=== PATIENT | female | born 1975 | race Caucasian/White ===

== ENCOUNTER 2016-07-02 16:35 | Emergency (ER) | payer SELFPAY ==
[2016-07-02 16:42] VITALS: RESP 16
--- NOTE | 2016-07-02 16:59 | EDPHY ---
General - History Smoking Status: Current every day smoker Narrative: CHIEF COMPLAINT: Fall, shoulder pain, back pain HISTORY OF PRESENT ILLNESS: gated to go to the restroom early this morning when she tripped and fell. She landed with her right arm outstretched. She did not strike her head or neck. She denies any loss of consciousness. She has pain in the right shoulder over the deltoid. It is worse with palpation or movement. Does not radiate. No weakness or numbness distally. Also has low back pain that is bilateral but not midline. She has no numbness or tingling of the saddle or distal extremities. She has no weakness of the lower extremities. No incontinence. No chest or back pain. No abdominal pain or injuries. The pain is mild to moderate. Worse with palpation or movement. Improved minimally rest. No previous orthopedic injuries. PRIOR ORTHO INJURIES: None ESTABLISHED ORTHOPEDIST: none REVIEW OF SYSTEMS: Ten systems reviewed and are negative unless otherwise noted in the HPI EXAMINATION General Appearance: Alert, no distress Head: normocephalic, atraumatic Eyes: Pupils equal and round, no conjunctival pallor or injection ENT, Mouth: Mucous membranes moist Neck: Normal inspection. Painless range of motion all planes. Respiratory: No dyspnea or retractions. No distress Cardiovascular: Pulses normal throughout. Symmetric DP pulses 2+. Symmetric radial pulses are 2+ Brisk cap refill Gastrointestinal: No distention. No tenderness. Back: Bilateral soft tissue tenderness of the lumbar region. There is no midline tenderness at any region. No crepitus, step-off deformity. Range of motion intact. Neurological: A&O, sensory symmetric, strength symmetric Skin: Warm and dry, no rash Extremities: Tenderness to palpation in the right upper extremity about the shoulder joint. There is minimal bony tenderness. There is positive Yergason' s speed. Negative anti can. No apprehension. Range of motion of the right elbow and wrist fully intact. The interossei are intact. Strength is symmetric to the left upper extremity. Psychiatric: Mood and affect normal DIFFERENTIAL DIAGNOSES: Including but not limited to Sprain, strain, fracture, dislocation, contusion , rotator cuff injury, slap injury MDM: 4:55 p.m. mechanical fall this morning resulting on the fall on outstretched arm but not onto the hand. She fell with abduction of the shoulder. Clinical suspicion is high for rotator cuff versus slap injury. Minimal bony tenderness. I will obtain an x-ray to definitively rule out fracture. Plan for discharge home with sling and pain medications. She is neurovascular intact distal to this injury. She has mild low back pain that is non midline and non bony. 5:25 p.m. x-ray is read as no acute fracture. There is evidence of the possibility of rotator cuff injury. This is consistent with her examination and history. She remains neurovascularly intact in the upper extremity. There is no evidence of acute cord compression or cauda equina regarding the low back pain. She will be discharged home with a shoulder sling, pain medication, muscle relaxant. She is to follow up with her orthopedist as we listed next week for definitive care. Patient is comfortable this plan. ED Precautions: Worsening pain. Erythema, edema, cyanosis, pallor, paresthesia or anesthesia. SUPERVISION: This patient was independently evaluated without the aide of supervising physician. (Mauricio Mart) This patient was evaluated and managed by the physician speech language pathologist assistant. I have reviewed the documentation and agreed with the plan of care. I am the secondary supervising physician. (Chantel Lopez) - Objective Vital Signs: Initial Vital Signs Temperature (C) 36.8 C 07/02/16 16:38 Heart Rate 93 07/02/16 16:38 Respiratory Rate 16 07/02/16 16:38 Blood Pressure 166/115 H 07/02/16 16:38 O2 Sat (%) 96 07/02/16 16:38 O2 Delivery Mode Room Air Allergies/Adverse Reactions: No Known Allergies Allergy (Unverified 07/02/16 16:38) Home Medications: Medication Instructions Recorded Acetaminophen/Codeine 300/30Mg 1 each PO Q6 PRN #15 tab 07/02/16 [Tylenol #3 (*)] Cyclobenzaprine [Flexeril 10 MG 10 mg PO TID PRN #15 tab 07/02/16 (*)] Departure - Departure Disposition: Home, Routine, Self-Care Clinical Impression: Sprain of shoulder, right, Acute low back pain Condition: Good Instructions: Low Back Strain (ED), Acute Low Back Pain (ED), Shoulder Sprain ( ED) Additional Instructions: Follow-up with Orthopedics for definitive care. Return to the ER for worsening pain, numbness, tingling or weakness Referrals: NONE *PRIMARY CARE P,. [Primary Care Provider] - As per Instructions Sammy Maldonado MD [Medical Doctor] - As per Instructions Stand Alone Forms: Work Limited Duty, Work Excuse Prescriptions: Acetaminophen/Codeine 300/30Mg [Tylenol #3 (*)] 1 each PO Q6 PRN #15 tab PRN Reason: Pain, Mild Cyclobenzaprine [Flexeril 10 MG (*)] 10 mg PO TID PRN #15 tab PRN Reason: Spasms
[2016-07-02 17:46] VITALS: BP 165/116; PULSE 89; TEMP 97.9; O2SAT 97
== END 2016-07-02 17:45 | disposition home or self-care (01) ==
DX: S39.92XA Unspecified injury of lower back, initial encounter (principal); S43.401A Unspecified sprain of right shoulder joint, initial encounter; F17.200 Nicotine dependence, unspecified, uncomplicated; W01.0XXA Fall on same level from slipping, tripping and stumbling without subsequent striking against object, initial encounter
CPT/HCPCS: A4565

== ENCOUNTER 2017-02-07 08:32 | Emergency (ER) | payer SELFPAY ==
[2017-02-07 08:39] VITALS: BP 158/72; PULSE 70; RESP 16; TEMP 98.4; O2SAT 95
--- NOTE | 2017-02-07 09:18 | EDPHY ---
H & P Stated Complaint: cough, nasal congestion, hoarse voice x 5 days Source: Patient Exam Limitations: No limitations - Personal History LMP (Females 10-55): 8-14 Days Ago Current Tetanus/Diphtheria Vaccine: Unsure Current Tetanus Diphtheria and Acellular Pertussis (TDAP): Unsure - Medical/Surgical History Hx Asthma: No Hx Chronic Respiratory Disease: No Hx Diabetes: No Hx Cardiac Disease: No Hx Renal Disease: No Hx Cirrhosis: No Hx Alcoholism: No Hx HIV/AIDS: No Hx Splenectomy or Spleen Trauma: No Other PMH: denies - Social History Smoking Status: Current every day smoker Time Seen by Provider: 02/07/17 09:14 HPI/ROS: HPI: This is a 42-year-old female who presents with Chief Complaint: cough, nasal congestion, hoarse voice x 5 days Location: chest and nose Quality: Congestion Duration: 5 days Signs and Symptoms: No fever, no chills, no sore throat, no neck stiffness, no headache, no nausea, no vomiting Timing: Gradual onset Severity: Mild Context: Patient is a tobacco user and reports nasal congestion accompanied by chest congestion with a dry nonproductive cough over the last 5 days. She started to feel better until yesterday when her voice became hoarse. She is eating and drinking normally. Taking NyQuil and DayQuil with relief of symptoms. She denies any lower leg swelling/wheezing/shortness of breath/chest pain. She missed work today and is requesting a work note. No history of asthma or COPD. Modifying Factors: NyQuil and DayQuil Comment: ROS: see HPI Constitutional: No fever, no chills, no weight loss Eyes: No blurred vision Respiratory: No shortness of breath, no cough Cardiovascular: No chest pain Gastrointestinal: No nausea, no vomiting, no diarrhea Genitourinary: No dysuria Extremities: No myalgias Neurologic: No weakness, no numbness Skin: No rashes Hematologic: No bruising, no bleeding MEDICAL/SURGICAL/SOCIAL HISTORY: Medical history: Generally healthy. Does not take any regular medications. Surgical history: Denies Social history: . CONSTITUTIONAL: Well-appearing adult white female, awake and alert, no obvious distress HEENT: Atraumatic and normocephalic, PERRL, EOMI. Tympanic membranes clear. Oropharynx clear, no exudate and moist pink mucosa. Airway patent. No lymphadenopathy. No meningismus. Cardiovascular: Normal S1/S2, regular rate, regular rhythm, without murmur rub or gallop. PULMONARY/CHEST: Symmetrical and nontender. Clear to auscultation bilaterally. Good air movement. No accessory muscle usage. ABDOMEN: Soft, nondistended, nontender, no rebound, no guarding, no peritoneal signs, no masses or organomegaly. No CVAT. EXTREMITIES: 2/2 pulses, no deformities, no clubbing, no cyanosis or edema. NEUROLOGICAL: no focal neuro deficits. GCS 15. SKIN: Warm and dry, no erythema. no rash. Good capillary refill. (Saima Chisholm) Constitutional: Initial Vital Signs Temperature (C) 36.9 C 02/07/17 08:36 Heart Rate 70 02/07/17 08:36 Respiratory Rate 16 02/07/17 08:36 Blood Pressure 158/72 H 02/07/17 08:36 O2 Sat (%) 95 02/07/17 08:36 O2 Delivery Mode Room Air Allergies/Adverse Reactions: No Known Allergies Allergy (Unverified 07/02/16 16:38) Home Medications: Medication Instructions Recorded predniSONE [predniSONE TAPER] 10 mg PO DAILY 6 Days ea 02/07/17 Medical Decision Making ED Course/Re-evaluation: Patient is afebrile, not tachycardic, no hypoxia. Lung exam is benign No signs of otitis media/sinusitis/strep pharyngitis based on Perc rule=0; pulmonary embolism can be ruled out. Symptoms are 5 days; no antibiotics are indicated. Will treat with a steroid taper, supportive care, and work note provided per request. (Saima Chisholm) I did not see this patient while she was in the emergency department. However her care was discussed with the PA while the patient was in the department. I agree with treatment plan and management (Gary Alfred) Differential Diagnosis: Differential diagnosis includes but is not limited to upper respiratory infection, bronchitis, strep pharyngitis, pneumonia. (Saima Chisholm) Departure - Departure Disposition: Home, Routine, Self-Care Clinical Impression: Tobacco user, Viral upper respiratory infection Condition: Good Instructions: Laryngitis (ED), Upper Respiratory Infection (ED) Additional Instructions: Rest your voice as much as possible over the next few days. Drink plenty of fluids to prevent dehydration. Take steroid taper as directed until complete. Please use [id number] cough medicine for cough, decongestants like Sudafed or mucinolytics like Mucinex for congestion to help relieve some your symptoms. Please avoid smoking until all symptoms have resolved. Referrals: [facility],. [Clinic] - As per Instructions Stand Alone Forms: Work Excuse Prescriptions: predniSONE [predniSONE TAPER] 10 mg PO DAILY 6 Days ea
== END 2017-02-07 09:30 | disposition home or self-care (01) ==
DX: J06.9 Acute upper respiratory infection, unspecified (principal); F17.200 Nicotine dependence, unspecified, uncomplicated

== ENCOUNTER 2017-03-21 21:19 | Emergency (ER) | payer OTHER ==
[2017-03-21] MEDS ORDERED: IBUPROFEN 600 MG TAB PO ONE (21:57)
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
[2017-03-21] MEDS ORDERED: CYCLOBENZAPRINE 10MG PREPACK#3 BTL TAKEHOME ONE (22:35)
[2017-03-21 22:56] VITALS: BP 126/71; PULSE 78; RESP 16; TEMP 98.1; O2SAT 96
== END 2017-03-21 22:59 | disposition home or self-care (01) ==
DX: S19.9XXA Unspecified injury of neck, initial encounter (principal); F17.200 Nicotine dependence, unspecified, uncomplicated; V49.49XA Driver injured in collision with other motor vehicles in traffic accident, initial encounter; Y92.410 Unspecified street and highway as the place of occurrence of the external cause; Y99.8 Other external cause status; Y93.89 Activity, other specified

== ENCOUNTER 2018-08-22 10:02 | Emergency (ER) | payer MEDICAID ==
[2018-08-22 10:06] VITALS: BP 161/107
[2018-08-22] MEDS ORDERED: LET GEL TOPICAL 1 EA SYR TP ONE (10:10)
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
[2018-08-22] MEDS ORDERED: SKIN ADHESIVE (DERMABOND) 1 EACH TP ONE (11:19)
== END 2018-08-22 11:43 | disposition home or self-care (01) ==
PROC: 0HQ1XZZ Repair Face Skin, External Approach (ICD-10-PCS; principal; 2018-08-22)
DX: S01.81XA Laceration without foreign body of other part of head, initial encounter (principal); S02.2XXA Fracture of nasal bones, initial encounter for closed fracture; S20.212A Contusion of left front wall of thorax, initial encounter; Y04.8XXA Assault by other bodily force, initial encounter